=== PATIENT | male | born 1950 | race Caucasian/White ===

== ENCOUNTER 2023-11-19 14:08 | Emergency (ER) | payer MEDICAID ==
[~2023-11-19] VITALS: Ht 162.6 cm; Wt 89.8 kg
[2023-11-19 14:22] VITALS: BP 117/79; PULSE 72; RESP 16; TEMP 98.2; O2SAT 99
[2023-11-19] MEDS ORDERED: IBUP-2029 MT (16:29)
== END 2023-11-19 17:00 | disposition home or self-care (01) ==
LOC: ER 14:08
DX: M54.31 Sciatica, right side (principal); E78.00 Pure hypercholesterolemia, unspecified
CPT/HCPCS: 99282